=== PATIENT | male | born 1930 | race Caucasian/White ===

== ENCOUNTER 2016-08-24 13:53 | Inpatient (IN) | payer MEDICARE, BC ==
[~2016-08-24] VITALS: Ht 165.1 cm; Wt 56.9 kg
--- NOTE | ~2016-08-24 | OR ---
PATIENT'S NAME: MAIY HANNA [facility] AGE: 86 Y [address] ROOM: [place] [address] LOCATION: [facility] [place] ADMIT DATE: 08/24/2016 OR/Procedure Report DISCHARGE DATE: 08/30/2016 FAMILY PHYSICIAN: Divina Weinstein MD ATTENDING PHYSICIAN: Bert Lafleur SURGEON: Luis Mercado MD PATIENT ACCESS REPRESENTATIVE: DATE OF PROCEDURE: 08/27/2016 DIAGNOSIS: Multiple thoracic and lumbar compression fractures, most acute at thoracic 7. PROCEDURE: 1. Biopsy of thoracic 7. 2. Examination under anesthesia, thoracic spine. ANESTHESIA: Local. INDICATION: Mr. Hanna was taken to the operating room. No preoperative antibiotics, positioned prone on the radiolucent table. All pressure points were carefully checked and padded. The back was prepared with DuraPrep and draped sterilely. Counting up from the sacrum, thoracic 7 was positively identified. It was the most compressed segment. The spine was manipulated. There was no correction of thoracic 7 possible with extension. Also on positioning, there was no increased deformity of any other levels. Local anesthetic was infused about the left thoracic 7 pedicle and about the adjacent skin. K-wire was driven in the pedicle. Rupert needle was advanced through the pedicle into the body. Multiple cores of biopsies were taken for cultures including aerobic, anaerobic, fungal, and TB and for histology of the bone tissue. Incision was closed with a 3-0 nylon suture. Procedure was done without complication. SPECIMENS: 1. Bone tissue sent for histology. 2. Bone tissue and aspirate sent for cultures including aerobic, anaerobic, fungal, and TB. Band-Aid was placed over the wound. To the recovery room in stable condition. LUIS MERCADO MD PATIENT'S NAME: MAYI HANNA [facility] AGE: 86 Y [address] ROOM: [place] [address] LOCATION: [facility] [place] ADMIT DATE: 08/24/2016 OR/Procedure Report DISCHARGE DATE: 08/30/2016 FAMILY PHYSICIAN: Divina Weinstein MD ATTENDING PHYSICIAN: Betr Lafleur DPM/modl /[id number] d: 09/05/16 0015 t: 09/05/16 0720, OPERATIVE SUMMARY
--- NOTE | ~2016-08-24 | DS ---
PATIENT'S NAME: MAYI HANNA [facility] AGE: 86 Y [address] ROOM: [address] [address] LOC[facility]: [facility] [place] ADMIT DATE: 08/24/2016 Discharge Summary DISCHARGE DATE: 08/30/2016 FAMILY PHYSICIAN: Divina Weinstein MD ATTENDING PHYSICIAN: Bert Chan DISCHARGE DIAGNOSES: 1. Multiple myeloma with multiple thoracic and lumbar compression fractures without spinal cord compression. 2. Mild cognitive deficit. PAST MEDICAL HISTORY: 1. Hypertension. 2. CKD stage 3. 3. Hiatal hernia. 4. Gastroesophageal reflux disease. 5. Allergic rhinitis. 6. Chronic normocytic normochromic anemia. DISCHARGE MEDICATIONS: 1. Calcitonin nasal spray one spray each nose daily. 2. Colace 100 mg p.o. b.i.d. 3. Milk of magnesia 30 mL everyday p.r.n. for constipation. 4. Senna 5 mL twice daily p.r.n. for constipation. 5. Paragould nasal spray one spray each nose daily p.r.n. for nasal congestion. 6. Artificial Tears 1 drop each eye daily p.r.n. for dry eyes. 7. Cyclobenzaprine 5 mg p.o. b.i.d. p.r.n. for muscle spasm. 8. Claritin 10 mg p.o. daily p.r.n. for allergy. 9. Dexamethasone 2 mg p.o. daily. 10. IV fentanyl 12.5 mcg every 4 hours p.r.n. for pain. Hold if drowsy or respiration rate less than 12 or systolic blood pressure less than 100. Titrate the frequency and dosing per primary care physician at the receiving facility. FOLLOW UP PLAN: The patient will be transferred to [facility] on August 30, 2016, for hospice care. This was discussed with the patient's son and the patient and no further investigation or management for the multiple myeloma will be pursued per patient and the patient's son wish. The patient will be going to [place], [place] as per hospice care. This was decided by the patient and the patient's son. This was confirmed by the caseworker protective services, Luis and Hematology Oncologist Dr. Smith with the patient and the patient's son who all agree to move forward with hospice care without any further investigation or any aggressive treatment or diagnostic testing for the multiple myeloma. I have already given the detailed phone sign-out to the receiving facility Dr. Weinstein at the [place], [place] and she understands the patient is on hospice PATIENT'S NAME: MAYI HANNA [facility] AGE: 86 Y [address] ROOM: [address] [address] LOCATION: [facility] [place] ADMIT DATE: 08/24/2016 Discharge Summary DISCHARGE DATE: 08/30/2016 FAMILY PHYSICIAN: Divina Weinstein MD ATTENDING PHYSICIAN: Bert Chan who will continue with hospice care management over there in [place], [place]. All questions and concerns were answered to the receiving facility physician Dr. Weinstein. DIAGNOSTIC DATA: Investigations during the hospitalization: MRI of the thoracic, lumbar, and cervical spine on August 25, 2016 showed multiple subacute upper compression fracture at L1, L2, L3, and L5. Abnormal marrow signal diffusely on T1 imaging. Cannot exclude diffuse marrow packing disorders such as leukemia and lymphoma. Severe central canal stenosis at L2- L3 and L3-L4 and L4-L5. Severe right foraminal stenosis at L3-L4 and L4-L5. Multilevel facet arthropathy. No destructive lesions or fractures in the cervical spine. In particular, the C5 does not show any significant abnormality. Advanced degenerative disc collapse with moderate spondylosis throughout the cervical spine below C2-C3. Severe central stenosis at the C3- C4 and C4-C5 and C5-C6 and to a lesser extent C6-C7. Significant bilateral foraminal stenosis at C2-C3 through C6-C7. X-ray of the cervical spine on August 25, 2016, showed abnormal appearing C5. X-ray of the lumbar and thoracic spine on August 26, 2016, show mild generalized thoracic kyphosis is stable. Vertebral body alignment is stable. No new compression fracture. Previously described compression fracture are stable. On August 26, 2016, a bone total body scan showed multiple spine and rib fracture. Whether this are benign or pathologic is uncertain. Correlation with serum protein electrophoresis, and possible bone marrow biopsy is advised. CT of the brain without contrast on August 26, 2016, showed chronic atrophy. No acute finding. Chest x-ray on August 28, 2016 show new streaking opacity at the left base atelectasis and/or pneumonia or atelectasis. MRI of the brain without contrast on August 28, 2016 showed chronic advanced brain atrophy. No acute finding. KUB on August 29, 2016, show the catheter is coiled in the esophagus and directed superiorly with his tip near the thoracic inlet. Catheter should be removed and reintroduced. On August 29, 2016, the patient underwent fluoroscopic-guided advancement of Dobhoff feeding tube into the stomach. PATIENT'S NAME: MAYI HANNA [facility] AGE: 86 Y [address] 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 No increase in plasma cells. Gram stain and wound culture and anaerobic culture of the thoracic T7 came back negative. Fungal culture and fungal stain also came back negative of the thoracic T7. Acid-fast bacilli smear and culture also came back negative on the thoracic T7 spine. Blood culture 2 sets negative obtained on August 28, 2006. LABORATORY DATA: Lactic acid 1.1 on admission. On admission white blood cell 11.4, hemoglobin 10.8, hematocrit 33.4, MCV 96.5, and platelet 330. On August 29, 2016 white blood cell 15.6, hemoglobin 10.1, hematocrit 32.1, MCV 88.2, and platelets 310. On admission glucose 92, BUN 21, creatinine 1.8, sodium 133, potassium 3.5, chloride 100, CO2 22, calcium 9.4. On August 29, 2016, glucose 101, BUN 25, creatinine 1.5, sodium 145, potassium 2.9, chloride 113, CO2 21, calcium 9.0. Potassium has been replaced already after these. Liver function testing on admission total protein 10.5, albumin 2.6, AST 34, ALT 30, alkaline phosphatase 88, total bilirubin 0.8, direct bilirubin 0.4, phosphorus 3.4. GFR 36 on admission and 44 on August 29, 2016. ESR 97 on admission and 104 on August 30, 2016. Urinalysis negative for UTI on August 26, 2016. Iron study show iron 63, TIBC 198, percent saturation 32%. Uric acid 1.8. IgA 100, IgG 4980, IgM 10, CRP 3.62 on admission. Folic acid 13.1, ferritin 459.90. Procalcitonin 0.13 on admission. Urine protein electrophoresis and serum protein electrophoresis are currently pending. Vitamin D25 hydroxy shows 32. CONSULTATIONS: 1. Dr. Luis Hanson from Orthopedic Surgery. 2. Dr. Luke Smith from Hematology Oncology. 3. Hospitalist team. 4. membership manager. 5. Palliative Care. ADMISSION HISTORY AND HOSPITAL COURSE: For the complete history and physical, refer to history and physical dictated on the day of admission. In summary, this is an 86-year-old male who was referred from the PATIENT'S NAME: MAYI HANNA [facility] AGE: 86 Y [address] ROOM: [address] [address] LOCATION: [facility] [place] ADMIT DATE: 08/24/2016 Discharge Summary DISCHARGE DATE: 08/30/2016 FAMILY PHYSICIAN: Divina Weinstein MD ATTENDING PHYSICIAN: Bert Chan outside facility after several episodes of fall, diagnosed with multiple compression fractures in the thoracic lumbar spine and transferred here from the outside facility for pain control on admission. The patient was admitted for the diagnoses mentioned in the discharge diagnoses. 1. Regarding his multiple myeloma with multiple thoracic and lumbar compression fracture without spinal cord compression: Initially, the patient was transferred here for pain control for multiple compression fractures. During our workups over here, the patient was found to have multiple myeloma, this is confirmed with the Hematology Oncologist Dr. Luke Smith. The patient is very sensitive to narcotics and he gets confused after taking them, therefore, the patient has been controlled with Tylenol as necessary. The case was discussed with patient's son and patient regarding if they wanted to pursue further investigation and treatment for multiple myeloma. However, the patient and patient's son both refused to have any further investigations or any aggressive treatments, and will rather go for hospice care due to his advanced age. Palliative Care was consulted and Arlyn Vargas, and also caseworker protective services, Luis both confirmed with patient and patient's son who indeed they wanted to pursue with hospice care without any further intervention for multiple myeloma. Dr. Luke Smith from Hematology Oncology also spoke to the son and the patient and also confirmed that both the son and the patient do not want to pursue any further investigation or treatment for multiple myeloma, rather the patient and the patient's son wanted to go for hospice care back in [place], [place]. The transportation was arranged by the caseworker protective services Luis to the [place], [place], which the patient has been accepted on August 30, 2016 and the patient was transferred via ambulance to [place], [place] on August 30, 2016, for hospice care. I have already given a detailed phone sign-out to the receiving facility physician who is also the primary care physician of the patient. Her name is Dr. Weinstein about the hospitalization course and the hospice care. All questions and concerns were answered to the primary care physician and the patient will be transferred on August 30, 2016 to [place], [place] for hospice care. Hospice care staff also will be visiting the patient next Friday on September 02, 2016, to start hospice care. Given that patient is trainsitoned to hospice care, therefore, all the aggressive management has been discontinued and patient only would be discharged with medications mentioned in the discharge medication section. This decision is confirmed with the patient and the patient's son who are in agreement with the plan. Time spent on the day of discharge 45 minutes including going over the plan of care and followup plan with the patient and the patient's son and arranging care with the caseworker protective services and Hematology Oncologist and the palliative care. I also went over the plan of care with the primary care physician at the receiving facility. PATIENT'S NAME: MAYI HANNA [facility] AGE: 86 Y [address] ROOM: [place] [address] LOCATION: [facility] ADMIT DATE: 08/24/2016 Discharge Summary DISCHARGE DATE: 08/30/2016 FAMILY PHYSICIAN: Divina Weinstein MD ATTENDING PHYSICIAN: Bert Chan BERT CHAN MD CC/modl /[id number] d: 08/31/16 1011 t: 09/12/16 0153, DISCHARGE SUMMARY
--- NOTE | ~2016-08-24 | HP ---
[facility] 86 Y [address] ROOM: [place] [address] LOCATION: [facility] [place] ADMIT DATE: 08/24/2016 History & Physical DISCHARGE DATE: FAMILY PHYSICIAN: PHYSICIAN, UNKNOWN ATTENDING PHYSICIAN: CAROL CHAN DATE OF SERVICE: ADDENDUM: PHYSICAL EXAMINATION: NEUROLOGIC: No muscle weakness and no sensation loss in all 4 extremities. Refer to the previous H and P for details of the neurological exam. SKIN: No ulcer, no rash, no cyanosis. LABORATORY DATA: Lactic acid 1.1. White blood cell 11.4, hemoglobin 10.8, hematocrit 33.4, MCV 96.5, and platelet 330. Glucose 92, BUN 21, creatinine 1.8, sodium 133, potassium 3.5, chloride 100, CO2 of 22, calcium 9.4, total protein 10.5, albumin 2.6, AST 34, ALT 30, alkaline phosphatase 98, total bilirubin 0.8, direct bilirubin 0.4, phosphorus 3.7, magnesium 2.1, anion gap 14.5, GFR 36, and ESR 97. INR 1.1. PTT 26. CRP 3.62. Procalcitonin 0.13. IMAGING STUDIES: Chest x-ray from the outside facility: The official report the outside facility did not send over here. The imaging test has already been pushed onto the PAC. ASSESSMENT AND PLAN: 1. Regarding his lower back pain from compression fracture: Currently, the x-ray from the outside facility is currently being loaded onto the PAC. I will request official report in writing from the outside facility because they did not send the report here. I specifically requested to have the report sent over here with the patient, but it was not included in the medical records that came with the patient. I will get an x-ray of the lumbar and cervical spine given that I was only told that a thoracic spine x-ray was performed at the outside facility. Currently, on my physical examination, I do not appreciate any spinal cord compression symptoms. Therefore, I will not order MRI for now. However, [facility]GE[facility] 86 Y [address] ROOM: [place] [address] LOCATION: [facility] ADMIT DATE: 08/24/2016 History & Physical DISCHARGE DATE: FAMILY PHYSICIAN: PHYSICIAN, UNKNOWN ATTENDING PHYSICIAN: CAROL CHAN if his symptoms worsen or there is any concern for spinal cord compression, then MRI of the thoracic lumbar spine will be ordered. Pain control with IV morphine p.r.n. and [place] p.r.n. and Flexeril p.r.n. He is also on intranasal calcitonin for the compression fracture pain control. I will put a consult for Dr. Hanson for Friday, August 26, 2016, that is the date that the patient will see Dr. Hanson for the appointment to see if it is necessary to perform kyphoplasty. Fall precaution. 2. Regarding his chronic kidney disease: Without any baseline to compare, I am not sure which is the baseline. I will hydrate him with IV fluids and check the BMP tomorrow again. 3. Hypertension: Continue the same home medication with holding parameters. 4. Regarding his gastroesophageal reflux disease: Continue omeprazole 20 mg p.o. daily. 5. Deep venous thrombosis prophylaxis: He will be getting heparin subcu 3 times a day. Time spent in care on the day of admission 35 minutes including chart review, interviewing and examining the patient, addressing all the questions and concerns the patient had, and going over the plan of care with the patient and the nurses. MD HANNAH GODOY/emmanuel /[id number] D: [id number] T: [id number] HISTORY & PHYSICAL
--- NOTE | ~2016-08-24 | CON ---
PATIENT'S NAME: MAYI HANNA [facility] AGE: 86 Y [address] ROOM: [address] [address] [place] [facility] [place]MIT DATE: 08/24/2016 Consultation DISCHARGE DATE: 08/30/2016 FAMILY PHYSICIAN: Divina Weinstein MD ATTENDING PHYSICIAN: Bert Lafleur REFERRING PHYSICIAN: Luke Smith MD Consult to Dr. Fink. Mayi Hanna is an 86-year-old man with an uncharacterized monoclonal gammopathy. The history of present illness is obtained largely from Mr. Hanna's son, Rickey, who is a good historian under the difficult circumstances; Mrs. Hanna; the patient, whose history is of dubious veracity as he was delirious; and from review of the [facility] chart and our colleague's records forwarded from [place], [place]. Mr. Hanna was in his normal state of health until early 2016. He lived in [place], [place], with Ms. Hanna. They lived in their own home. The patient could drive. He did not require a cane or walker. He did some light work. Woodworking was a hobby. He helped Ms. Hanna with vacuuming. The patient would walk every day, perhaps half a mile twice a day. 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 In early to mid June, the patient developed a cold. The patient had violent coughing paroxysms, which were associated with back pain. Three weeks ago, the patient began to develop more severe back pain with minimal change in position. The patient reported for evaluation and apparently plain films revealed four fractured vertebrae. The patient found it difficult to walk. The patient's evaluation for back pain was somewhat truncated because he ruptured tendons in his left hand with a saw. The tendon on his left hand needed to be repaired in [place], [place]. The patient was hospitalized in [place], [place], on 08/23/2016 and then transferred to [facility] on 08/24/2016 for evaluation of his back pain. The patient was placed on Dr. Hanson's Orthopedic Service, but managed by Dr. Lafleur as well. Upon admission, the urinalysis was unremarkable except for 100 mg/dL of protein on a spot UA. The white count was 11,400 with 80% neutrophils and 13% lymphocytes. The hemoglobin was 10.8 g/dL, the MCV 96, and the platelets 330,000. The INR was 1.1 and the PTT was 26 seconds. The CMS was remarkable for a creatinine of 1.8 mg/dL with an EGFR of 36 mL/m. The liver function tests were normal. The calcium was normal at 9.4 mg/dL. The albumin was 2.6 g/dL and the globulin was 7.9 g/dL. The serum protein electrophoresis revealed a monoclonal spike in the gamma region of 4.5 g/dL. PATIENT'S NAME: MAYI HANNA [facility] AGE: 86 Y [address] ROOM: [id number] [place], [place] [address] [place] [facility] [place]MIT DATE: 08/24/2016 Consultation DISCHARGE DATE: 08/30/2016 FAMILY PHYSICIAN: Divina Weinstein MD ATTENDING PHYSICIAN: Bert Lafleur The 25-hydroxyvitamin D level was 32 ng/mL. A plain film of the cervical spine revealed a moth-eaten appearance in the C5 vertebral body. Plain films of the thoracic spine revealed mild generalized thoracic kyphosis with no new compression fractures compared to earlier films. Lumbar spine films revealed moderate level lumbar spine compression fractures as well as osteoporosis. The patient underwent a modified barium swallow on 08/28/2016, which revealed laryngeal penetration with nectar thickness liquids. There was no aspiration. Thin liquids were not attempted. A portable chest x-ray revealed streaky opacity at the left lung base compatible with atelectasis and/or pneumonia. A nuclear medicine bone scan revealed multiple foci of increased vertebral activity in the cervical, thoracic, and lumbar spine. The bone scan appearance was nonspecific and compatible with osteoporotic compression fractures. MRI of the cervical spine revealed advanced osteoarthritic collapse of all of the disk spaces below C2-C3. There were old compression fractures of the upper endplates at T1 and T2. There were no destructive lesions or fractures. There was severe central stenosis at C3-C4, C4-C5, C5- C6, and C6-C7. There was significant bilateral foraminal stenosis throughout the cervical spine. MRI of the thoracic spine revealed multiple thoracic vertebral body compression fractures. T7 was severely compressed. There were subacute upper endplate compressions of T1, T2, T5, T8, T9, and T11. MRI of the lumbar spine revealed the marrow had been infiltrated and grossly fatty in appearance. They could not exclude diffuse marrow packing such as leukemia. There was abnormal bone marrow signaling diffusely on T1 imaging. There were multiple subacute upper endplate compression fractures at L1, 2, 3, and 5. The patient became delirious shortly after his trip to [place]. He developed dysphagia. He developed ptosis of the left eyelid. His appetite has been poor, he has lost weight and has rapidly declined clinically over the past 2 [address] scan of the brain on 08/27/2016, revealed chronic cerebral atrophy. An MRI scan of the brain revealed advanced brain atrophy with mild white matter changes and old microhemorrhages in the left cerebellum and left frontal lobe. There was no acute infarct. No bony changes were remarked on the CAT scan or the MRI. The patient is seen in consultation. The patient has no history of an immunoproliferative or documented malignant disease. He has seen the chiropractor in [place] for several years for low back pain, but the current pain is over and above what he has experienced before. ACTIVE MEDICAL HISTORY (CHRONIC AND DIAGNOSED): 1. Essential arterial hypertension noted decades ago, this has not been labile or associated with any end-organ damage. 2. Diaphragmatic hernia associated with gastroesophageal reflux disease. 3. Allergic rhinitis particularly troublesome in the summer, treated with [id number] nonsedating antihistamines and some allergy shots. 4. Osteoarthritis. 5. 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 PATIENT'S NAME: MAYI HANNA [facility] AGE: 86 Y [address] ROOM: [id number] [place], [place] [address] [place] [facility] [place]MIT DATE: 08/24/2016 Consultation DISCHARGE DATE: 08/30/2016 FAMILY PHYSICIAN: Divina Weinstein MD ATTENDING PHYSICIAN: Bert Lafleur 6. Chronic kidney disease since he was hypotensive with a severe episode of influenza in 2006. 7. Decreased auditory acuity, requiring hearing aids. 8. 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 9. Adenomatous polyposis of the colon noted in 2011 on a colonoscopy. 10. Osteoporosis. 11. Benign prostatic hypertrophy. 12. Brain atrophy. 13. Old microhemorrhages in the left cerebellum and left frontal lobe. ACUTE MEDICAL ILLNESS, RESOLVED, PAST SURGERIES, INJURIES: 1. In 1984, transurethral resection of the prostate for BPH. 2. In 1994, breast lumpectomy. 3. 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 4. 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 5. In 1996, hospitalization for influenza leading to superior renal insufficiency. 6. In 2009, left arm fracture, no long-term sequelae. 7. In 2014, disseminated varicella zoster virus infection. CURRENT MEDICATIONS: 1. Metoprolol 25 mg p.o. b.i.d. 2. Amlodipine 10 mg p.o. q.24 hours. 3. Pantoprazole 40 mg IV daily. 4. Piperacillin/tazobactam IV every 8 hours. 5. Calcitonin nasal spray. 6. Heparin 5000 units subcu every 8 hours. ADVERSE REACTIONS TO MEDICATIONS, TRANSFUSIONS, ALLERGIES: 1. Sulfa. 2. Ciprofloxacin. 3. The patient has no history of blood transfusions. TOBACCO: None. ALCOHOL: None. CAFFEINE: Coffee and Mountain Dew. IMMUNIZATIONS: PATIENT'S NAME: MAYI HANNA [facility] AGE: 86 Y [address] ROOM: [place] [address] [place] [facility] [place]MIT DATE: 08/24/2016 Consultation DISCHARGE DATE: 08/30/2016 FAMILY PHYSICIAN: Divina Weinstein MD ATTENDING PHYSICIAN: Bert Lafleur Positive flu. Positive Pneumovax. Positive tetanus. Positive varicella zoster virus vaccine. FAMILY HISTORY: The patient's brother had a small intestine middle section removed for cancer. SOCIAL HISTORY: The patient was born and raised a [facility] [place]. He was a [employer] all his life. The patient and his attend the [employer]. The patient has a daughter in [facility], and a son and daughter in [place], [place]. REVIEW OF SYSTEMS: Nocturia x1-2. PHYSICAL EXAMINATION: VITAL SIGNS: Pulse 108 and regular, blood pressure 160/100, respiratory rate 20, temperature 99.1 degrees Fahrenheit, SpO2 of 93% on room air, height 65 inches, weight 125 pounds, and BMI 20.8 kg/meter squared. GENERAL: Well-developed, reasonably well-nourished, agitated and confused, 86- year-old, male. HEENT: Unremarkable. LYMPH NODES: None palpable. NECK: Without JVD or carotid bruit. The patient cannot be well auscultated as the patient has on a brace. CV: Regular rhythm with no murmurs auscultated at the right upper sternal border and left upper sternal border. ABDOMEN: Cannot be well examined as the patient is on a back brace. GENITALIA AND RECTAL: Not examined. EXTREMITIES: Ecchymoses on the dorsal aspect of the forearm. The patient has kenny angiomas and ecchymoses on other places. The patient has compression devices on the lower extremities. NEURO: The patient can move all 4 extremities. He has left eye ptosis. The Babinski is negative. Strength is 3/5 throughout. Deep tendon reflexes 2+. IMPRESSION: 1. This is an 86-year-old man with subacute (approximately 6 weeks) development of disabling back pain, with marked behavioral changes over the last 2 to 3 days, anorexia, weight loss, normocytic anemia, elevated CRP and sedimentation rate, hypoalbuminemia, hypergammaglobulinemia, longstanding renal insufficiency, a marked monoclonal gammopathy, severe T7 compression fracture, and multiple endplate compression fractures (T1, 2, 5, 8, 9, 11, 12; and L1, 2, 3, 5) with an abnormal marrow signal on T1 imaging. 2. The T7 biopsy revealed no evidence of multiple myeloma. There was PATIENT'S NAME: MAYI HANNA [facility] AGE: 86 Y [address] ROOM: [address] [address] [place] [facility] [place]MIT DATE: 08/24/2016 Consultation DISCHARGE DATE: 08/30/2016 FAMILY PHYSICIAN: Divina Weinstein MD ATTENDING PHYSICIAN: Bert Lafleur osteonecrosis with associated marrow fibrosis. 3. Within a reasonable degree of certainty, the patient has multiple myeloma. It is likely the pathologic diagnosis would be confirmed with a bone marrow aspiration and biopsy. 4. Mr. Hanna is 86 and does have comorbidities. That being said, it is reassuring he was functioning well until 2 months ago and multiple myeloma is a disease that is quite treatable. 5. Mr. Hanna's family and probably Mr. Hanna himself are aware that multiple myeloma is a treatable disease. Patients can be restored to good health. He also seems to be aware he cannot plan on a quick "good ". The patient has certainly satisfied his Power of Clinical Social Work Aide he is in possession of his faculties. The patient wants to forego further evaluation to confirm and then treat multiple myeloma. RECOMMENDATIONS: DIAGNOSTIC: No further tests. TREATMENT: 1. Prednisone 20 mg a day. 2. Best supportive care. PATIENT EDUCATION: Discussed the findings today with the family. Made the point within a reasonable degree of certainty he has multiple myeloma. Weighed the pros and cons of best supportive care with hospice or a bone marrow aspiration and biopsy and treatment of multiple myelomas. Discussed his situation with Dr. Lafleur and Dr. Weinstein and arranged for his transfer back home to [place]. MD VINCENT NEWMAN/emmanuel /[id number] d: 08/30/16 2348 t: 09/02/16 1846, CONSULTATION REPORT
--- NOTE | ~2016-08-24 | HP ---
PATIENT'S NAME: MAYI HANNA [facility] AGE: 86 Y [address] ROOM: [address] [address] [place] [facility] [place]: 08/24/2016 History & Physical DISCHARGE DATE: FAMILY PHYSICIAN: PHYSICIAN, UNKNOWN ATTENDING PHYSICIAN: CAROL CHAN DATE OF SERVICE: CHIEF COMPLAINT: Lower back pain. HISTORY OF PRESENT ILLNESS: This is an 86-year-old male, who says that roughly about 6 to 7 weeks ago, he has been having this lower back pain. He denies any fall or any trauma to the lower back. The patient is a poor historian, therefore, story is not very reliable. The patient is also hard of hearing. The story that I got from the outside facility was very little to almost nothing. Only thing that the outside facility told me was that the patient had multiple compression fractures in the back and was supposed to see Dr. Hanson for possible kyphoplasty on Friday, August 26, 2016. Because of the worsening back pain, the patient was transferred here for pain control and to be seen by Dr. Hanson on Friday, August 26, 2016. I asked the patient several times if he had injured his back and he had any fall or any trauma, and the patient denied. He also denies any pain radiating down to the legs. He also denies any bowel or urinary retention or incontinence. There is no sensation loss in bilateral lower extremities. There is no muscle weakness in either lower extremity. There is no neck pain. The upper extremities do not have any strength loss or any sensation loss. He recently had some surgery in his left hand and is healing up well without any signs of infection. The patient denies any chest pain, shortness of breath, cough, palpitation, dyspnea, or any other symptoms except localized pain in the lower back, especially in the lower thoracic region and in the lower lumbar region in the midline. REVIEW OF SYSTEMS: As mentioned in the history of present illness. All other systems reviewed and negative except those mentioned in the history of present illness. PAST MEDICAL HISTORY: 1. Hypertension. 2. CKD, not sure which stage. No prior lab to compare. Not documented on the outside transfer medical record. 3. Hiatal hernia. 4. Gastroesophageal reflux disease. 5. Allergic rhinitis. [facility]GE[facility] 86 Y [address] ROOM: [address] [address] [place] [facility] [place]: 08/24/2016 History & Physical DISCHARGE DATE: FAMILY PHYSICIAN: PHYSICIAN, UNKNOWN ATTENDING PHYSICIAN: CAROL CHAN ALLERGIES: CIPROFLOXACIN, FEEL SICK IN GENERAL. SULFA, WHICH CAUSES HIVES AND ITCHINESS. HOME MEDICATIONS: 1. Amlodipine 2.5 mg p.o. every night at bedtime. 2. Calcitonin 3.7 mL, one spray in each nostril daily. 3. Cyclobenzaprine 5 mg p.o. b.i.d. p.r.n. for pain. 4. Bellevue 10/325 mg 1 tablet p.o. every 4 hours p.r.n. for pain. 5. Claritin 10 mg p.o. every day p.r.n. for allergy. 6. Multivitamin 1 tablet p.o. daily. 7. Omeprazole 20 mg p.o. daily. 8. Senna 8.6 mg p.o. b.i.d. p.r.n. for constipation. 9. Nasal spray one spray in each nose daily p.r.n. for nasal congestion. SOCIAL HISTORY: The patient is a former cigarette smoker, he quit 45 years ago, and he smoked about half pack per day only for 1 to 2 years according to the patient. He denies any alcohol use or any illegal drug use. PAST SURGICAL HISTORY: Status post prostate procedure, details not clear, he said was for his enlarged prostate, I assume it is for the benign prostatic hypertrophy. Status post amputation of the finger on the left hand. FAMILY HISTORY: Father had Parkinson disease and from old age according to the patient. He could not remember from which cause. Mother from complications from COPD. PHYSICAL EXAMINATION: VITAL SIGNS: At the time of my dictation; temperature 98.2, heart rate 87, respiration rate 18, blood pressure 156/82, and saturation 99% on room air. Pain 3/10 in the lower thoracic and the lumbar midline area. GENERAL APPEARANCE: Alert and oriented x3, in no acute distress. HEENT: Pupils equally round and reactive to light. Extraocular muscles intact. Anicteric sclerae. Nasal turbinates are normal bilaterally. Moist oral mucosa. NECK: No JVD. No cervical lymphadenopathy. No neck stiffness. CARDIOVASCULAR: Regular rate and rhythm. Normal S1 and S2. There is audible 2/6 murmur. No rubs. No gallops. RESPIRATORY: Clear to auscultation. ABDOMEN: Soft, nontender, and nondistended. Normal bowel sounds. No hepatosplenomegaly. No palpable mass. No abdominal rigidity. EXTREMITIES: No edema in the upper or lower extremities. SKIN: No ulcer. No rash. No cyanosis. PATIENT'S NAME: MAYI HANNA [facility] AGE: 86 Y [address] ROOM: [place] [address] [place] [facility] [place] DATE: 08/24/2016 History & Physical DISCHARGE DATE: FAMILY PHYSICIAN: PHYSICIAN, UNKNOWN ATTENDING PHYSICIAN: CAROL CHAN NEUROLOGIC: No saddle anesthesia. Rectal tone is intact. Sensation intact in all 4 extremities. Muscle strength intact in all 4 extremities. Babinski negative bilaterally. Deep tendon reflex +2 at the knees bilaterally and also at the biceps bilaterally. Proprioception and vibration intact. Finger-to- nose intact. Krcy-kn-krbr intact. No facial droop. No slurred speech. There will be an addendum to this H&P. CAROL CHAN MD CC/modl /[id number] D: 704 T: 923 HISTORY & PHYSICAL
--- NOTE | ~2016-08-24 | CON ---
PATIENT'S NAME: MAYI HANNA [facility] AGE: 86 Y [address] ROOM: [address] [address] [place] [facility] [place]: 08/24/2016 Consultation DISCHARGE DATE: FAMILY PHYSICIAN: Divina Weinstein MD ATTENDING PHYSICIAN: CAROL CHAN DATE OF CONSULTATION: 08/25/2016 TIME SEEN: 09:00 p.m. HISTORY OF PRESENT ILLNESS: Mr. Hanna is an 86-year-old white male with increasing mid and low back pain. He has reached a level that is difficult to ambulate, not from weakness, but from pain. No history of trauma, no known cancer or infection. Denies any pain radiating down his arms or legs. Denies weakness and numbness. Denies loss of bowel or bladder control. The patient denies weight loss, malaise, fevers, chills, and sweats. The daughter and the reports that he has had significant weight loss. He has been treated with Tower and calcitonin without control of the pain. No bracing. X-rays 4 weeks ago showed a thoracic 7 compression fracture. MEDICATIONS: See list. ALLERGIES: CIPRO. PAST MEDICAL HISTORY: Hypertension and reflux. He quit smoking in the past. No alcohol, no drug abuse. REVIEW OF SYSTEMS: As above. PERSONAL AND SOCIAL HISTORY: Lives at home. He has become bed confined over the last 2 weeks. PHYSICAL EXAMINATION: GENERAL: White male, mild distress. HEENT: Hears and sees. Pharynx is clear. HEART: His pulse rate is regular. LUNGS: Able to take in a deep breath without pain. ABDOMEN: Full, but soft and nontender. NECK: Limited motion, but nontender. PATIENT'S NAME: MAYI HANNA [facility] AGE: 86 Y [address] ROOM: [address] [address] [place] [facility] [place]: 08/24/2016 Consultation DISCHARGE DATE: FAMILY PHYSICIAN: Divina Weinstein MD ATTENDING PHYSICIAN: CAROL CHAN THORACIC SPINE: He is able to sit up. There is a mild gibbus of the mid thoracic spine. Generally tender, but no localized tenderness either to percussion or touch. LUMBAR SPINE: Unable to stand and demonstrate range of motion. Generally tender, but no localized tenderness to percussion or touch. Pelvis is stable. Hips have limited internal rotation with discomfort. NEUROLOGIC: Biceps 5/5 bilaterally. Triceps 5/5 bilaterally. Wrist extensors 5/5 bilaterally. Wing Coverer 4/5 on the left, 5/5 on the right. Intrinsics 4/5 on the left, 5/5 on the right. Iliopsoas 5/5 bilaterally. Quadriceps 5/5 bilaterally. Anterior tibialis 5/5 bilaterally, gastroc is 5/5 bilaterally. No atrophy. Normal tone. Sensation is intact throughout in the upper extremities, torso, and lower extremities. RECTAL: Deferred. EXTREMITIES: Distal pulses are present. No pedal edema. No calf pain. INTEGUMENT: Intact. LABORATORY AND DIAGNOSTIC STUDIES: X-rays from August 03, 2016, from [place] show thoracic 7 with about 50% loss of height anteriorly. MRI of the thoracic spine shows fractures of thoracic 1, thoracic 2, thoracic 5, thoracic 7, thoracic 9, thoracic 9, thoracic 11, and thoracic 12. Thoracic 7 is the most acute and has near complete loss of height. Thoracic 11 has no collapse and thoracic 9 and thoracic 12 are remote and healed. MRI of the lumbar spine shows degeneration of all levels with severe stenosis at lumbar 2-3, lumbar 3-4, and lumbar 4-5. There are subacute fractures of lumbar 1, lumbar 2, lumbar 3, and lumbar 4 without significant loss of height. C-reactive protein is 3.48, sedimentation rate is 99, hemoglobin is 10, and white blood count is 11. ASSESSMENT AND PLAN: Certainly, thoracic 7 is most likely the principal source of pain and there has been progression deformity comparing the current MRI to the x-ray taken 4 weeks ago. There is no spinal cord compression. Some concern with the number of fractures that are present as well as the elevated laboratory tests with the CRP and the sedimentation rate, and also the anemia. I have to consider that there may be some process other than just osteoporosis. We will order a serum protein electrophoresis. We will make arrangements for a whole-body technetium bone scan and we will plan for a thoracic 7 biopsy under local anesthetic on August 27, 2016. Certainly, if on the OR table the collapse of thoracic 7 improves and there is some evangelical of height or if the upright x-rays taken tomorrow show loss of height at other levels with being upright, could benefit from augmentation. Certainly with so many levels of fracture and significant deformity and degeneration with stenosis, augmentation could never be expected to relieve all of his pain. I emphasized PATIENT'S NAME: MAYI HANNA [facility] AGE: 86 Y [address] ROOM: [place] [address] [place] [facility] [place]: 08/24/2016 Consultation DISCHARGE DATE: FAMILY PHYSICIAN: Divina Weinstein MD ATTENDING PHYSICIAN: CAROL CHAN with a conference with his daughter that there could be another process involved such as cancer. Risks, benefits, and alternatives were all discussed in detail. We will also fit him for a soft thoracolumbosacral orthosis with shoulder straps. FLORIDA MERCADO MD DPM/emmanuel /[id number] d: 08/26/16 0051 t: 09/04/16 1620, CONSULTATION REPORT
--- NOTE | ~2016-08-24 | CON ---
PATIENT'S NAME: MAYI HANNA [facility] AGE: 86 Y [address] ROOM: [address] [address] LOCATION: [facility] ADMIT DATE: 08/24/2016 Consultation DISCHARGE DATE: 08/30/2016 FAMILY PHYSICIAN: Divina Weinstein MD ATTENDING PHYSICIAN: Bert Lafleur DATE OF CONSULTATION: 08/30/2016 REFERRING PHYSICIAN: Bert Lafleur MD LOCATION: [place] [id number]. REASON FOR CONSULTATION: This is a Palliative Care referral for coordination with hospice and pain control. HISTORY OF PRESENT ILLNESS: This 86-year-old frail male was admitted on 08/24/2016 with increasing lower back pain. He denies any fall or trauma to his low back. He is very hard of hearing. He had a CT scan impression is no destructive lesions or fractures on the C-spine, in particular C5 does not show any significant abnormality, but advanced degenerative disk collapse with moderate spondylosis throughout the C-spine below the C2 and C3. Severe central stenosis at C3-C4, C4-C5, C5-C6, and a lesser extent to C6 and C7. Significant bilateral foraminal stenosis on C2 and C3 through C6 and C7. MRI shows multiple subacute endplate compression fractures L1, L2, L3, L5, and abnormal bone marrow signal diffusely at T2 cannot exclude diffuse bone marrow packing disorder such as leukemia or lymphoma. Severe central canal stenosis on L2-L3, L3-L4, and L4-L5. Severe right foraminal stenosis on L3-L4 and L4- L5. Multilevel facet arthropathy. 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 No increase in plasma cells. Dr. Smith and Sofia Marie PA-C met with family and the patient earlier today and the patient stated he did not want to have any more treatments done and just wanted to go back to [place] and be kept comfortable. PAST MEDICAL HISTORY: Hypertension, chronic kidney disease, not sure what stage, hiatal hernia, gastroesophageal reflux disease, and allergic rhinitis. ALLERGIES: CIPROFLOXACIN AND SULFA, WHICH CAUSES HIVES AND ITCHINESS. HOME MEDICATIONS: 1. Amlodipine 2.5 mg every night. PATIENT'S NAME: MAYI HANNA [facility] AGE: 86 Y [address] ROOM: [address] [address] LOCATION: [facility] ADMIT DATE: 08/24/2016 Consultation DISCHARGE DATE: 08/30/2016 FAMILY PHYSICIAN: Divina Weinstein MD ATTENDING PHYSICIAN: Bert Lafleur 2. Calcitonin 3.7 mg one spray each nostril daily. 3. Flexeril 5 mg b.i.d. p.r.n. pain. 4. [place] 10/325 1 tab p.o. every 4 hours p.r.n. pain. 5. Claritin 10 mg every day p.r.n. allergy. 6. Multivitamin 1 tab daily. 7. Omeprazole 20 mg daily. 8. Senna 8.6 mg p.o. b.i.d. p.r.n. constipation. 9. Nasal spray p.r.n. nasal congestion. SOCIAL HISTORY: He is and had been living at home. He is a former smoker. He quit 45 years ago. Smoked a half-a-pack per day for 1-2 years per the patient. Denies any alcohol or illicit drug use. 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 FAMILY HISTORY: Father had Parkinson's and of old age. Mother had complications of COPD. REVIEW OF SYSTEMS: A 10 point review of systems is done and is negative except as mentioned in the HPI and listed below: HEENT: He is very [id number], has to shout, seems to be oriented to name, to kids names, but does not know place and time. RESPIRATIONS: No shortness of breath. MUSCULOSKELETAL: Denies any pain currently, but does grimace with movement. PSYCH: No history of depression. PHYSICAL EXAMINATION: GENERAL: This is a frail 86-year-old male. VITAL SIGNS: Temp 98.5, axillary, pulse 100, respirations 27, blood pressure 179/101, and O2 sats 92% on room air. He is 5 feet, 5 inches, weighs 125, with a BMI of 20.8. GENERAL: Alert and oriented to most questions, not to place and time. HEENT: Normocephalic and atraumatic. Sclerae nonicteric. Conjunctivae pale and pink. Mouth is pink and moist without exudate. LYMPHS: No cervical adenopathy. RESPIRATORY: Clear to auscultation bilaterally. Breath sounds even and regular. CARDIAC: S1, S2 without murmurs or bruits. Tachy rate. No lower extremity edema. PATIENT'S NAME: MAYI HANNA [facility] AGE: 86 Y [address] ROOM: [place] [address] LOCATION: [facility] ADMIT DATE: 08/24/2016 Consultation DISCHARGE DATE: 08/30/2016 FAMILY PHYSICIAN: Divina Weinstein MD ATTENDING PHYSICIAN: Bert Lafleur ABDOMEN: Soft, nontender. Positive bowel tones. No hepatosplenomegaly. NEURO: Some confusion, falls asleep easily, otherwise grossly intact. MUSCULOSKELETAL: Appropriate range of motion, but is mostly curled up in a little ball in the bed. Does have kyphosis and dressing on T7 dry and intact from biopsy. Palliative performance scale is about 10%, totally bed-bound, unable to do any activity, total care, minimal to sips, conscious level is some confusion and drowsy. LABORATORY DATA: White count 15.6, hemoglobin 10.1, hematocrit 32.1, and 310,000 platelets. Sodium 145, potassium 2.9, BUN is 2.5, creatinine 1.0, albumin is 2.6, calcium is 9.0, and GFR is 44. IMPRESSION: Bone pain, thoracic spine, weakness and fatigue, and dysphagia. PLAN: Met with the patient. The patient states he wants to just get back to [place] on comfort cares. Reviewed chart, called son, and discussed the plan of getting back to hospice. He would like him to get back to hospice as soon as possible. He had talked with Sofia Marie and Dr. Smith and wanted no treatment for possible multiple myeloma and just wants the patient to be comfortable, control pain, in transit, and have hospice see the patient at the swing bed in [place]. Notified hospice in [facility], which covers [place], faxed information, and they will try to admit tonight. RECOMMENDATIONS: 1. Pain: He is on IV Tylenol every 6 hours. Not sure of [place] Swing Bed has IV Tylenol or not, but may need to use Tylenol or acetaminophen 650 mg p.o. or rectally. For bone pain, may consider adding dexamethasone a low-dose 2 mg p.o./IV for bone pain. 2. Code status and advance directive. The patient is a do not resuscitate. No copy of advance directive is on the chart. Son states he is his power- of-drop press hand and will meet the patient at swing bed in [place]. Answered all questions and concerns on hospice. Total time with counseling and coordination of care was 70 minutes with 65 minutes for counseling and coordination of care. PATIENT'S NAME: MAYI HANNA [facility] AGE: 86 Y [address] ROOM: [address] [address] LOCATION: [facility] ADMIT DATE: 08/24/2016 Consultation DISCHARGE DATE: 08/30/2016 FAMILY PHYSICIAN: Divina Weinstein MD ATTENDING PHYSICIAN: Bert Lafleur NP FOR MD SALVADOR GARCIA/emmanuel /[id number] d: 08/30/16 2226 t: 09/17/16 0741, CONSULTATION REPORT
[2016-08-24] MEDS ORDERED: NORVASC2.5 MG PO (14:29)
[2016-08-24] MEDS ORDERED: MIACALCIN3.7 ML/BOT NOSE (14:32)
[2016-08-24] MEDS ORDERED: CENTRUM SILVER1 TAB PO (14:32)
[2016-08-24] MEDS ORDERED: CYCLOBENZAPRINE5 MG PO (14:33)
[2016-08-24] MEDS ORDERED: OCEAN NASAL) (A44 ML NOSE (14:33)
[2016-08-24] MEDS ORDERED: CLARITIN10 MG PO (14:33)
[2016-08-24] MEDS ORDERED: NORCO 10-325 T1 EACH PO (14:34)
[2016-08-24] MEDS ORDERED: PRILOSEC20 MG PO (14:34)
[2016-08-24] MEDS ORDERED: SENNA8.6 MG PO (14:35)
[2016-08-24] MEDS ORDERED: REFRESH LIQUIGE30 ML OPHTH (14:35)
[2016-08-24 17:15] LABS: BASOPHIL # 0.1 K/uL (0.0-0.2); BASOPHIL % 0.4 %; EOSINOPHIL % 0.4 %; HEMATOCRIT 33.4 % (33.0-50.0); HEMOGLOBIN 10.8 g/dL (11.0-16.0); IMMATURE GRANULOCYTE # 0.1 K/uL (0.0-0.3); IMMATURE GRANULOCYTE % 0.9 %; LYMPHOCYTE # 1.4 K/uL (0.8-4.0); LYMPHOCYTE % 12.6 %; MCH 31.2 pg (27.0-34.0); MCHC 32.3 gm/dL (32.0-36.5); MCV 96.5 fl (83.0-98.0); MONOCYTE # 0.6 K/uL (0.0-1.0); MONOCYTE % 5.2 %; MPV 9.3 fl (9.4-12.4); NEUTROPHIL # (ANC) 9.2 K/uL (1.4-9.0); NEUTROPHIL % 80.5 %; NRBC % 0 /100WBC (0-0.00); PLATELET COUNT 330 K/uL (150-450); RBC 3.46 M/uL (3.50-5.50); RDW-CV 16.7 % (11.9-14.6); WBC 11.4 K/uL (4.0-11.0)
[2016-08-24 17:23] LABS: INR - (THERAPEUTIC) 1.1 (0.9-1.1); PROTIME 11.2 SECONDS (9.6-11.1); PTT 26 SECONDS (25-32)
[2016-08-24 17:34] LABS: ALBUMIN 2.6 gm/dL (3.5-5.0); ANION GAP 14.5 (10.0-19.0); CALCIUM 9.4 mg/dL (8.5-10.5); CREATININE 1.8 mg/dL (0.6-1.3); MAGNESIUM 2.1 mg/dL (1.3-2.6); PHOSPHORUS 3.4 mg/dL (2.5-4.9); POTASSIUM 3.5 mMol/L (3.7-5.1); TOTAL BILIRUBIN 0.8 mg/dL (0.0-1.5)
[2016-08-24 17:38] LABS: TOTAL PROTEIN 10.5 g/dL (6.0-8.4)
--- NOTE | 2016-08-24 17:53 | NUR ---
Patient arrived to room 3203 at 1400 via ambulance from [place], [place] for pain control secondary to T10 compression fracture. 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 States his pain started in January and continually has gotten worse. He then developed a cough in June that made his back pain worse. He was scheduled to see Dr. Hanson on friday but could not stand the pain.
--- NOTE | 2016-08-25 01:36 | NUR ---
SIGNIFICANT EVENT: Patient alert and oriented. Need XRay results from MON[facility] Rendon - requested. Hypertensive, other VSS on RA. L) FA IV running NS at 75 mL/hr. DNR. Bedrest but does turn on side by himself. CRAIG. Cardiac diet. Morphine x1 with little relief, [place] x1 with noted relief. Cooperative with cares.
[2016-08-25 05:12] LABS: BASOPHIL # 0.1 K/uL (0.0-0.2); BASOPHIL % 0.5 %; EOSINOPHIL % 0.3 %; HEMATOCRIT 30.2 % (33.0-50.0); IMMATURE GRANULOCYTE # 0.1 K/uL (0.0-0.3); IMMATURE GRANULOCYTE % 1.1 %; LYMPHOCYTE # 1.8 K/uL (0.8-4.0); LYMPHOCYTE % 16.3 %; MCH 31.3 pg (27.0-34.0); MCHC 33.1 gm/dL (32.0-36.5); MCV 94.4 fl (83.0-98.0); MONOCYTE # 0.7 K/uL (0.0-1.0); MONOCYTE % 5.9 %; MPV 9.4 fl (9.4-12.4); NEUTROPHIL # (ANC) 8.3 K/uL (1.4-9.0); NEUTROPHIL % 75.9 %; NRBC % 0.2 /100WBC (0-0.00); PLATELET COUNT 326 K/uL (150-450); RDW-CV 16.6 % (11.9-14.6)
[2016-08-25 05:31] LABS: ANION GAP 15.7 (10.0-19.0); CREATININE 1.6 mg/dL (0.6-1.3); POTASSIUM 3.7 mMol/L (3.7-5.1)
--- NOTE | 2016-08-25 14:40 | NUR ---
Patient is alert and oriented but can be confused after taking morphine. Has been given morphine x1 at 1100, [place] x2 with last at 1300, mild relief noted with norco. He went down for an MRI of the thoracic and will go down for a cervical MRI. IV in L) forearm infusing at 50ml/hr. On bedrest. Will see Dr. Hanson tomorrow morning.
--- NOTE | 2016-08-26 04:35 | NUR ---
SIGNIFICANT EVENT: Patient alert, slept very little - increased confusion after 1900 dose of oxycodone with noted pain relief. Restless, several attempts to get out of bed - alarms at all times. Morphine given at 0235. Hypertensive, tachycardic and tachypneic even with pain relief. MD notified after midnight MEWS of 4 - labetalol ordered, given approx 0100. Need UA. NPO after MN tonight for biopsy on 08/27. Cardiac diet. Bedrest. PIV to L) FA infusing NS at 50 mL/hr. Cooperative with cares.
--- NOTE | 2016-08-26 05:37 | NUR ---
SIGNIFICANT EVENT: Patient alert, disoriented to place/time. Calls out for , several attempts to get out of bed - alarms at all times. Increased confusion after 1900 dose of oxycodone. Morphine x1. Hypertensive 180's over 100's to 110's. MD notified - order for labetalol and given at 0100. PIV to L) FA infusing NS at 50 mL/hr. Plan is for Total Body bone scan and Biopsy of T7 fx on 08/27 - will need to be NPO at [facility]. Cooperative with cares when redirected/reoriented.
[2016-08-26 05:43] LABS: ANION GAP 11.3 (10.0-19.0); CALCIUM 8.8 mg/dL (8.5-10.5); CREATININE 1.7 mg/dL (0.6-1.3); MAGNESIUM 1.9 mg/dL (1.3-2.6); POTASSIUM 3.3 mMol/L (3.7-5.1)
--- NOTE | 2016-08-26 10:10 | NUR ---
1010 Introduced self/role to patients , Brittani and daughter. There plan is for patient to go to [facility] in [place], [place] which is a shelter. They stated it might turn into a longterm placement but the goal is for rehabing to home. Patients son/POA, Rickey #[phone], is going to be calling them today. They gave me permission to contact them and start a referral by sending them some information. and daughter are going home today and unsure if they will be back tomorrow. Daughter lives in [place]. Rickey will be coming out from [place] sometime this week. 1220 Called [facility] #[phone] and left a message for Shamika. 1325 Shamika called back, just wants a little bit of information because son had already called and facility will want to know if patient has bone cancer and what the treatment will be. 1400 Faxed some referral information to [facility] #[phone].
[2016-08-26 12:33] LABS: BILIRUBIN URINE NEGATIVE (NEGATIVE); BLOOD URINE 50 /UL (NEGATIVE); GLUCOSE URINE NEGATIVE (NEGATIVE); KETONE URINE NEGATIVE (NEGATIVE); LEUKOCYTES URINE NEGATIVE /UL (NEGATIVE); NITRITE URINE NEGATIVE (NEGATIVE); PROTEIN URINE 100 mg/dL (NEGATIVE); SPEC GRAVITY URINE 1.015 (1.003-1.035); UROBILINOGEN URINE 1 mg/dL (NORMAL)
[2016-08-26 12:36] LABS: COLOR URINE YELLOW (YELLOW); TURBIDITY URINE CLEAR (CLEAR)
[2016-08-26 12:41] LABS: AMORPHOUS URINE 1+ (NEGATIVE); BACTERIA URINE NEGATIVE (NEGATIVE); EPITHELIAL URINE 0-2 #/HPF (NEGATIVE); RBC URINE 0-2 #/HPF (NEGATIVE); WBC URINE 0-2 #/HPF (NEGATIVE)
--- NOTE | 2016-08-26 18:28 | NUR ---
PATIENT HAS HAD EKG FOR TACHYCARDIA THIS AFTERNOON. MRI BACK, XRAYS TO BACK, BONE SCAN DONE TODAY. MORPHINE GIVEN AT 1230, NORCO AT 1600. TLSO BRACE WITH SHOULDER STRAPS WHEN STOOD AND USED COMMODE. TWO HEAVY ASSIST TO COMMODE. BED ALARM AT ALL TIMES. NPO AT MIDNIGHT FOR SURGERY TOMORROW. CSM WEAK TO LEGS . FEET COOL, MOVES WELL. CHOKING ON FLUIDS TODAY, SPEECH EVALUATED AND ORDERED MECHANICAL SOFT DIET. FAMILY AT HOME TODAY WILL RETURN IN THE AM. CONFUSED TO DATE AND PLACE, REPOSITIONED Q2H.
[2016-08-27 05:35] LABS: BASOPHIL # 0.1 K/uL (0.0-0.2); BASOPHIL % 0.6 %; EOSINOPHIL % 0.4 %; HEMATOCRIT 33.2 % (33.0-50.0); HEMOGLOBIN 10.4 g/dL (11.0-16.0); IMMATURE GRANULOCYTE # 0.1 K/uL (0.0-0.3); IMMATURE GRANULOCYTE % 1.1 %; LYMPHOCYTE # 1.4 K/uL (0.8-4.0); LYMPHOCYTE % 12.8 %; MCH 31.1 pg (27.0-34.0); MCHC 31.3 gm/dL (32.0-36.5); MONOCYTE # 0.8 K/uL (0.0-1.0); MONOCYTE % 7.2 %; MPV 9.6 fl (9.4-12.4); NEUTROPHIL # (ANC) 8.4 K/uL (1.4-9.0); NEUTROPHIL % 77.9 %; NRBC % 0.2 /100WBC (0-0.00); PLATELET COUNT 288 K/uL (150-450); RBC 3.34 M/uL (3.50-5.50); RDW-CV 17.6 % (11.9-14.6); WBC 10.8 K/uL (4.0-11.0)
[2016-08-27 05:38] LABS: MCV 99.4 fl (83.0-98.0)
[2016-08-27 05:49] LABS: ANION GAP 13.6 (10.0-19.0); CALCIUM 8.6 mg/dL (8.5-10.5); CREATININE 1.6 mg/dL (0.6-1.3)
[2016-08-27 05:52] LABS: POTASSIUM 3.6 mMol/L (3.7-5.1)
--- NOTE | 2016-08-27 07:07 | NUR ---
Significant Event: Pt alert and oriented to self only. Bedrest. Can be up with TLSO and at least 2 person. Biopsy of back today. [place] x2 with good relief. Slept well. Uses urinal. Follow up:
--- NOTE | 2016-08-27 14:24 | NUR ---
PT. LEFT FOR SURGERY AT 1145
--- NOTE | 2016-08-27 18:18 | NUR ---
LATE ENTRY: 1419 1 MG IV MORPHINE FOR ANTICIPATED PAIN. RESPIRATIONS LABORED AND RATES ARE 32-44. BLOOD PRESSURE 180/91. PATIENT WILL OPEN EYES TO VERBAL RESPONSE BUT DOES NOT ATTEMPT TO COMMUNICATE AT THIS TIME. 1431 NO CHANGE TO (A) CONTINUES TO HAVE LABORED BREATHING AND ELEVATED BLOOD PRESSURES. FENTANOL 25 MCG IV. 1448 10 MG LABETALOL FOR SYSTOLIC BP GREATER THAN 180. PATIENT CONTINUES TO SLEEP AND IS TAKING A LONG TIME TO WEAR OFF HIS IV SEDATION. LUNGS CLEAR, WILL RESPOND TO VERBAL STIMILUS. 1450 25 MCG FENTANOL FOR PAIN AND ELEVATED PRESSURES, CONTNUES TO HAVE LABORED BREATHING. 1500 USES URINAL AND VOIDS 200 ML. IS RESTLESS AND PULLS AT GOWN AND LEADS. RESPIRATIONS REMAIN AT 30. BLOOD PRESSURE HAS IMPROVED. 142/71. 1530 PATIENT RESTING AT THIS TIME. BLOOD PRESSURE IS STARTING TO ELEVATE AGAIN. 1545 MORPHINE 1MG IV FOR PAIN AND RESTLESSNESS. 1600 REPORT CALLED TO RUTH CID ON MED/SURG
--- NOTE | 2016-08-27 19:06 | NUR ---
Significant Event:PT. RETURNED TO ROOM AT 1615. SLEEPY BUT AWAKENS EASILY. UPPER BACK BIOPSY SITE BANDAIDE IS D/I. THICKENED LIQUIDS AND MECHANICAL SOFT REGULAR DIET. HYPERTENSION AND IV BP MED GIVEN AT 1730 FOR 184/86, P-101. GAVE ORAL BP MED ALSO. ON 2L PER NC AND 93%. BIOPSY OF T7. TURNS SELF. SON HERE AND LEFT HIS PHONE NUMBER. Follow up:
--- NOTE | 2016-08-28 03:59 | NUR ---
Significant Event:PT HAD T7 BIOPSY YESTERDAY, HAS BANDAIDE W/ SHADOW DRAINAGE TO MIDDLE OF BACK. PT HAS IV TO L FA W/ NS@ 75ML/HR. PT HAS BEEN HYPERTENSIVE MOST OF THE SHIFT,170'S-180'S GAVE LABATALOL@ 0035 FOR BP OF 183/101, RECHECK WAS EVEN HIGHERAND PT INDICATED PAIN GAVE MORPHINE 1MG @ 0156, RECHECK OF BP WAS 161/83. PT IS A HEAVY 2 ASSIST TO COMMODE. PT IS INCONT OF URINE AT TIMES, DISORIENTED TO PLACE. PT NEED TO HAVE SWALLOW EVAL DONE, MECH SOFT DIET W/ THICKENED LIQUIDS. Follow up:MONITOR PAIN.
[2016-08-28 05:29] LABS: BASOPHIL % 0.3 %; HEMOGLOBIN 10.9 g/dL (11.0-16.0); IMMATURE GRANULOCYTE # 0.2 K/uL (0.0-0.3); IMMATURE GRANULOCYTE % 1.4 %; LYMPHOCYTE # 1.3 K/uL (0.8-4.0); LYMPHOCYTE % 10.5 %; MCH 31.1 pg (27.0-34.0); MCHC 32.1 gm/dL (32.0-36.5); MCV 96.9 fl (83.0-98.0); MONOCYTE # 0.7 K/uL (0.0-1.0); MONOCYTE % 5.6 %; MPV 9.6 fl (9.4-12.4); NEUTROPHIL # (ANC) 10.2 K/uL (1.4-9.0); NEUTROPHIL % 82.2 %; NRBC % 0 /100WBC (0-0.00); PLATELET COUNT 340 K/uL (150-450); RBC 3.51 M/uL (3.50-5.50); RDW-CV 17.7 % (11.9-14.6); WBC 12.4 K/uL (4.0-11.0)
[2016-08-28 05:40] LABS: ANION GAP 12.3 (10.0-19.0); CALCIUM 8.9 mg/dL (8.5-10.5); CREATININE 1.5 mg/dL (0.6-1.3); MAGNESIUM 1.9 mg/dL (1.3-2.6); POTASSIUM 3.3 mMol/L (3.7-5.1)
--- NOTE | 2016-08-28 09:50 | NUR ---
7689 Introduced self to patient's son/TOREY Lang. He stated they still don't know test results yet. Understands this might effect placement. He is headed to [place] this afternoon to assist his mom with some things, then they will be back either or Friday. He didn't have any questions or concerns for me at this time.
--- NOTE | 2016-08-28 13:24 | NUR ---
A - PT SCREENED D/T LOS. T10 FX. NEEDS MBS. HT: 65" WT: 125# BMI: 20.8 LABS: K+ 3.3, GLU 108, BUN/CR 23/1.5, ALB 2.6, CRP 3.48, WBC 12.4 MEDS: PROTONIX, IVF, BOWEL DIET: NPO. WAS MECH-SOFT, NECTAR LIQUIDS. INTAKE: BITES-100%, AVG ~36% NEEDS: 4461-5808 KCAL (25-30 KCAL/KG), 57-68 G PRO (1-1.2 G/KG), 1710 ML FLUID (30 ML/KG) D - INADEQUATE NUTRIENT INTAKE R/T DECREASED APPETITE AEB INTAKE RECORD. I - GOAL FOR INTAKE > 50% BY NEXT ASSESSMENT. WILL ADD ENSURE PUDDING TID. M/E - WILL MONITOR INTAKE. F/U IN 2-4 DAYS.
--- NOTE | 2016-08-28 16:04 | NUR ---
Received orders for evaluation. Tried to evaluate pt at 1330 but had radiology in room at the time. Will attempt to see tomorrrow. Ketty Schmidt, PT
--- NOTE | 2016-08-28 17:37 | NUR ---
Significant Event:PT. HAD MRI OF HEAD TODAY AND SWALLOW STUDY. FAILED SWALLOWING STUDY AND DOBHOFF TO BE PLACED WITH NUTRITION. GAVE TYLENOL AT 1130 TODAY AND CAN GIVE PRN FOR PAIN. BP 143/85 THIS AFTERNOON. UP TO COMMODE AND HAD LARGE SOFT BROWN STOOL. IV RESTARTED IN LAC WITH FLUIDS RUNNING. BIOPSY SITE MID UPPER BACK D/I. Follow up:
[2016-08-29 05:19] LABS: BASOPHIL % 0.3 %; EOSINOPHIL % 0.1 %; HEMATOCRIT 32.1 % (33.0-50.0); HEMOGLOBIN 10.1 g/dL (11.0-16.0); IMMATURE GRANULOCYTE # 0.1 K/uL (0.0-0.3); IMMATURE GRANULOCYTE % 0.7 %; LYMPHOCYTE # 1.7 K/uL (0.8-4.0); LYMPHOCYTE % 10.8 %; MCH 30.9 pg (27.0-34.0); MCHC 31.5 gm/dL (32.0-36.5); MCV 98.2 fl (83.0-98.0); MONOCYTE % 6.5 %; MPV 9.6 fl (9.4-12.4); NEUTROPHIL # (ANC) 12.7 K/uL (1.4-9.0); NEUTROPHIL % 81.6 %; NRBC % 0 /100WBC (0-0.00); PLATELET COUNT 310 K/uL (150-450); RBC 3.27 M/uL (3.50-5.50); RDW-CV 17.6 % (11.9-14.6); WBC 15.6 K/uL (4.0-11.0)
--- NOTE | 2016-08-29 05:35 | NUR ---
SIGNIFICANT EVENT: Patient is alert, oriented to person but some confusion with time/place. NPO - poor results on swallow study, dobhoff and nutrition consult today - son and are coming today from [place]. 2 [employer] voids. Hypertensive, tachycardic and tachypneic - some d/t pain. O2 sats remain mid 90's on RA. IV Tylenol for pain - given x1. No oral meds given d/t NPO order. Bedrest. New order for TLSO brace. PIV to L) AC infusing NS at 75, intermittent antibiotics. Cooperative with cares.
[2016-08-29 05:43] LABS: ANION GAP 13.9 (10.0-19.0); CREATININE 1.5 mg/dL (0.6-1.3)
[2016-08-29 05:44] LABS: POTASSIUM 2.9 mMol/L (3.7-5.1)
--- NOTE | 2016-08-29 10:12 | NUR ---
A - NUTRITION CONSULT FOR TF. PT A/O X 2. K+ 2.9, GLU 101, BUN/BREAD RACKER 25/1.5. EST NEEDS: 1579-3640 KCALS, 57-68 GM PROTEIN, 1710 ML H20. PT NPO PER ST REC. IVF AT 75 ML/HR. D - AT RISK W/ DIFFICULTY SWALLOWING R/T WEAKNESS AEB ST ASSESSMENT. I - GOAL: TO MEET 100% NUTRIENT NEEDS VIA EN. M/E - PHONE MD AND OBTAINED ORDER FOR [place] 1 SANDIP AT GOAL OF 60 ML/HR = 1440 KCALS, 64 GM PROTEIN, 1212 ML FREE H20; DC IVF AND FLUSH W/ 100 ML H20 Q 8 HRS. WILL MONITOR TOLERANCE OF EN.
--- NOTE | 2016-08-29 18:53 | NUR ---
Significant Event: Patient is disoriented to time and place, oriented to person. Hard to understand at times. Dobhoff ordered to be placed and nutrition consulted. 2 RN's attempted 4 times without success. During the process of trying to place the dobhoff patient was able to cough up copious amounts sputum and thick sputum. Bloody and dark brown in color. Deep oral suctioning ordered. RT only set up the Yanker. Nurse provided the deep oral suction with the kits we have on the floor. Was able to get a little bit out. Still need a sputum culutre. Weak cough. Dobhoff was able to be placed under folro this afternoon. Started the tube feeding around 16-16/30 so far tolerating well. Started at 20ml/hr with a flush of 100ml/8hr and then every 4 hours to check residual. Please see chart for more orders. IV potassium given today, the other bag needs to be given yet. 40meq at a time. SL'd all other IV fluids minus the IV ABX. IV in the L)AC. Can moblize as he tolerates. Brace is not fitting well, needs to be adjusted by twisting frame changer. Did work with PT and OT today. IV tylenol [id number] PRN pain, given x2. Mouth/Oral cares every 1-2 hours for oral hygeine. Patients mouth is very dry. Blood pressure remains high on and off. Highest was 182/103- IV labetlol given. Cooperative with most cares. Did try and pull on the dobhoff once. Reminded patient not to do that, he kindly agreed.
--- NOTE | 2016-08-30 07:21 | NUR ---
SIGNIFICANT EVENT: Patient was awake most of shift - slept occasionally. Residual checked at 1999 - none aspirated, rate increased to 30 mL. Kangaroo pump indicated occlusion on approx 3 different occasions - first 2 times, was able to restart. Third time, would not restart and unable to flush line/aspirate. House mgr also contacted for assistance - her efforts yielded no results either. Hospitalist contact at approx 2345, order for NPO, 50 mL/hr NS, and hold TF and oral meds for now. New PIV to R) wrist. IV Tylenol LG at 0335. Hypertensive - 140's to 180's over 100's. IV labetalol at 2300 and 0300 - BP down to 161/97 at 0343. Tachypneic and tachycardic. 90's on RA. BRACE adjusted for better fit - make sure to put the top straps UNDER the armpits rather than over the shoulders.
--- NOTE | 2016-08-30 13:50 | NUR ---
1350 Sofia Nickerson notified me patients family is electing hospice and would like to return to [place] as soon as possible. 1355 Called patients son Rickey #[phone] to talk about discharge wishes and financial matter related to Hospice[facility]. [facility] He will call me back in 10 minutes with preference. 1400 Called Laura at [facility] they have a bed but could not take today or over the weekend. Called [facility] and spoke to Génesis #[phone]. They do have an opening and could accept today or over the weekend. The cost is $163.00 a day. Hospice would not admit until Friday but they would just do comfort cares until then. 1415 Rickey called back and I gave him an update. They would like the [facility]. Gave him the financial information which he voiced understanding about. 1430 Called Génesis at [facility] back faxing info now, she will run it over to Dr. Weinstein as soon as she gets it. . 1445 Called EMS to give them a heads up, Cecily didn't think our crew would be able to do it but to call back when I knew for sure he was going. [address] Lafleur and Alison with Palliative. Orders and ambulance cert placed on chart. Packet started and given to charge nurse. 1520 Génesis called back and Dr Weinstein will accept. Preference would be to arrive there around 1700 or 1900 to avoid shift change. Dr Weinstein's #[phone] - given to Dr Lafleur. Updated nursing that we are a go for discharge just working on transportation. Nurse to nurse number given to Charge Nurse Gosia #[phone] ext [phone]. 1525 Called Cecily with EMS - gave her information on patient, will have an IV. She will work on getting a crew as ours will not be available.
--- NOTE | 2016-08-30 16:10 | NUR ---
Patient is an 86 year old male who as admitted to [facility] on 08/24/16 for severe back pain and T10 Fx. They did complete a biopsy of the T7. Patient also has developed trouble swallowing and they completed a swallowing study and he did not pass. Dobhoff cathteher was placed via nare, which only worked for 4 hours. He also has the possiblity of having multiple myleoma. Patients family discussed the options and decided that they wanted comfort measures. Dobhoff was not replaced and it was removed. Palliative care was added. Blood pressure has been running hypertensive, PRN labetolol has been given 2 times today. Has been recieving IV tylenol for pain q8HR. Dilaudid and morphine was making him more confused. Patient is disoriented x3 at times. Coughing up bloody thick sputum. Very dry mouth. Oral cares every 1-2 hours. Not requiring oxygen at this time. Turning every 2 hours. Fragile skin. Using the urinal to void. Had a smear BM today. Heavy 2PA. TLSO brace on when up. Staffing Coordinator came and adjusted it last night. IV in the L)AC and R)Wrist. Very fidgety. Bed alarm on. Family in and out.
[2016-09-03 13:56] LABS: ALBUMIN 30.8 % (45.0-80.0); ALPHA 1 0.3 g/dL (0.1-0.4); ALPHA 2 1.1 g/dL (0.5-1.1); GAMMA 4.3 g/dL (0.6-1.5); PROTEIN, TOTAL 9.7 g/dL (6.1-7.8)
== END 2016-08-30 17:00 | disposition hospice, inpatient (51) | DRG 823 ==
LOC: GMSU 13:53
PROVIDERS: Hospitalist; Internal Medicine Hematology & Oncology; Nurse Practitioner Family; Orthopaedic Surgery; ADMIT Internal Medicine
PROC: 0PB43ZX Excision of Thoracic Vertebra, Percutaneous Approach, Diagnostic (ICD-10-PCS; principal; 2016-08-27)
DX: C90.00 Multiple myeloma not having achieved remission (principal); G92 Toxic encephalopathy; J69.0 Pneumonitis due to inhalation of food and vomit; N17.9 Acute kidney failure, unspecified; E44.0 Moderate protein-calorie malnutrition; R13.10 Dysphagia, unspecified; M48.54XA Collapsed vertebra, not elsewhere classified, thoracic region, initial encounter for fracture; M48.56XA Collapsed vertebra, not elsewhere classified, lumbar region, initial encounter for fracture; I12.9 Hypertensive chronic kidney disease with stage 1 through stage 4 chronic kidney disease, or unspecified chronic kidney disease; K21.9 Gastro-esophageal reflux disease without esophagitis; Z87.891 Personal history of nicotine dependence; H54.42 Blindness, left eye, normal vision right eye; M81.0 Age-related osteoporosis without current pathological fracture; M48.02 Spinal stenosis, cervical region; Z66 Do not resuscitate; T40.605A Adverse effect of unspecified narcotics, initial encounter; R00.0 Tachycardia, unspecified; N18.3 Chronic kidney disease, stage 3 (moderate); D64.9 Anemia, unspecified
CPT/HCPCS: A9503; C9113; J0131; J1644; J2270; J2543; J3010; J3480; J7030; J7050